=== PATIENT | female | born 1965 | race American Indian/Alaskan Native ===

== ENCOUNTER 2016-09-14 05:52 | Day surgery (SDC) | payer OTHER ==
[2016-09-14 06:52] LABS: Basophils % (Auto) 0.4 % (0.0-1.8); Eosinophils % (Auto) 0.8 % (0.0-4.3); Hematocrit 37.3 % (30.3-42.9); Hemoglobin 12.8 gm/dl (10.1-14.3); Mean Corpuscular HGB Conc 34 % (30-34); Mean Corpuscular Hemoglobin 36 pg (28-32); Mean Corpuscular Volume 106 fl (79-97); Platelet Count 306 K/mm3 (140-440); Red Blood Count 3.52 M/mm3 (3.65-5.03); Red Cell Distribution Width 13.3 % (13.2-15.2); White Blood Count 5.8 K/mm3 (4.5-11.0)
[2016-09-14] MEDS ORDERED: NACL 0.9% 500 ML 500 ML IV SCH (07:00)
[2016-09-14 07:06] LABS: Anion Gap 17 mmol/L; Blood Urea Nitrogen 14 mg/dL (7-17); Calcium 9.6 mg/dL (8.4-10.2); Carbon Dioxide 28 mmol/L (22-30); Chloride 106.7 mmol/L (98-107); Glucose 114 mg/dL (65-100); Potassium 4.6 mmol/L (3.6-5.0); Sodium 147 mmol/L (137-145)
[2016-09-14 07:07] LABS: INR 0.93 (0.87-1.13)
[2016-09-14] MEDS ORDERED: HEPARIN/NS 5000 UNIT/500ML(CATH LAB) 1,000 ML IR ONE (07:46)
[2016-09-14] MEDS ORDERED: CALAN ONE (07:47)
[2016-09-14] MEDS ORDERED: HEPARIN 10,000 UNITS/10 ML ONE (07:47)
[2016-09-14] MEDS ORDERED: XYLOCAINE 2% INFILTRATI ONE (07:47)
[2016-09-14] MEDS ORDERED: NITROGLYCERIN SYRINGE 3 ML ONE (07:47)
[2016-09-14] MEDS ORDERED: SUBLIMAZE ONE (07:48)
[2016-09-14] MEDS: VERSED ONE ×2 (08:06→08:13)
[2016-09-14 11:20] VITALS: BP 127/67
== END 2016-09-14 11:30 | disposition home or self-care (01) ==
LOC: CATHLABREC 05:52
PROVIDERS: ATTEND Internal Medicine Cardiovascular Disease
DX: R07.2 Precordial pain (principal); I10 Essential (primary) hypertension; E78.2 Mixed hyperlipidemia; Z79.82 Long term (current) use of aspirin; Z79.899 Other long term (current) drug therapy; Z98.890 Other specified postprocedural states; Z86.73 Personal history of transient ischemic attack (TIA), and cerebral infarction without residual deficits
CPT/HCPCS: 36415; 80048; 85025; 85610; 85730; 93005; 93010; 93458; C1887; C1894; J1644; J2250; J3010; J7040; Q9967